=== PATIENT | female | born 1985 | race Hispanic/Latino ===

== ENCOUNTER 2019-12-24 06:41 | Day surgery (SDC) | payer OTHER ==
[2019-12-22 12:25] LABS: Hematocrit 36.6 % (30.3-42.9); Hemoglobin 12.7 gm/dl (10.1-14.3); Mean Corpuscular HGB Conc 35 % (30-34); Mean Corpuscular Volume 77 fl (79-97); Platelet Count 539 K/mm3 (140-440); Red Blood Count 4.75 M/mm3 (3.65-5.03); Red Cell Distribution Width 15.4 % (13.2-15.2)
--- NOTE | 2019-12-23 14:29 | Short Stay Summary ---
Short Stay Documentation Date of service: 12/24/19 Narrative H&P: 34y/o G0 presents with chronic pelvic pain and findings of a right dermoid cyst measuring 1.9cm. The patient has no desire to conceive in the future. She has requested removal of ovary instead of a cystectomy. The patient has been counseled on the risks and benefits of this procedure. Patient has been reassessed/reevaluated/re-examined. H&P has been reviewed. No interval changes. - History Principal diagnosis: Dermoid cyst Past Medical History: hypothyroidism, other (endometrial hyperplasia; obesity; depression) Past Surgical History: No surgical history Social history: single - Allergies and Medications Current Medications: Allergies No Known Allergies Allergy (Unverified 12/16/19 14:45) Home Medications Medication Instructions Recorded Confirmed Last Taken Type Bupropion HCl [Wellbutrin XL] 300 mg PO QAM 12/16/19 12/16/19 Unknown History Cariprazine HCl [Vraylar] 1.5 mg PO DAILY 12/16/19 12/16/19 Unknown History FLUoxetine HCL [PROzac] 40 mg PO QDAY 12/16/19 12/16/19 Unknown History Levothyroxine [Synthroid] 50 mcg PO QAM 12/16/19 12/16/19 Unknown History QUEtiapine [SEROquel] 25 mg PO HS 12/16/19 12/16/19 Unknown History clonazePAM [ Klonopin] 0.25 mg PO BID 12/16/19 12/16/19 Unknown History Active Medications Celecoxib (Celebrex) 200 mg PO PREOP NR Stop: 12/24/19 23:00 Gabapentin (Gabapentin) 600 mg PO PREOP NR Stop: 12/24/19 23:00 Lactated Ringer's (Lactated Ringers) 1,000 mls @ 100 mls/hr IV DIRECT LIZZETH Stop: 12/24/19 23:59 Magnesium Oxide (Mag-Ox) 400 mg PO PREOP LIZZETH Stop: 12/24/19 23:00 Midazolam HCl (Versed) 2 mg IV PREOP NR Stop: 12/24/19 23:00 - Physical exam General appearance: no acute distress Integumentary: no rash HEENT: Atraumatic Lungs: Clear to auscultation Breasts: deferred Heart: Regular rate Gastrointestinal: normal Female Genitourinary: deferred Rectal Exam: deferred - Brief post op/procedure progress note Date of procedure: 12/24/19 Pre-op diagnosis: Right dermoid cyst Post-op diagnosis: same Procedure: Laparoscopy Right oophorectomy Anesthesia: VINCENT Surgeon: SAY NOBLE Estimated blood loss: minimal Pathology: list (Right ovary) Specimen disposition: to lab Condition: stable - Hospital course Hospital course: The patient was on at the day of surgery and underwent a laparoscopy and a right oophorectomy. Please see operative note for details of surgery. Her postoperative course was uneventful. - Disposition Condition at discharge: Good Disposition: [id number] TO HOME OR SELFCARE - Discharge Diagnoses (1) Dermoid cyst Status: Acute Short Stay Discharge Plan Activity: other (Pelvic rest for 1 week) Diet: regular Additional Instructions: Schedule follow-up with Dr. Noble in 2 to 4 weeks Prescriptions: Ibuprofen [Motrin] 800 mg PO Q8HR PRN #30 tablet PRN Reason: Pain , Severe (7-10) HYDROcodone/APAP 5-325 [[place] 5/325] 1 each PO Q6HR PRN #15 tablet PRN Reason: Pain
[~2019-12-24 06:41] MED LIST: CELECOXIB 200 MG CAP PO NR; GABAPENTIN 300 MG CAP PO NR; LACTATED RINGERS 1,000 ML IV SCH; MAGNESIUM OXIDE 400 MG TAB PO SCH
--- NOTE | 2019-12-24 07:42 | Anesthesia Consultation ---
Anesthesia Consult and Med Hx Date of service: 12/24/19 - Airway Anesthetic Teeth Evaluation: Good ROM Head & Neck: Adequate Mental/Hyoid Distance: Adequate Mallampati Class: Class III Intubation Access Assessment: Possibly Difficult - Pre-Operative Health Status ASA Pre-Surgery Classification: ASA3 Proposed Anesthetic Plan: General - Central Nervous System Hx Psychiatric Problems: Yes (Anxiety, ADHD, bipolar) - Endocrine Hx Hypothyroidism: Yes - Other Systems Hx Alcohol Use: Yes (Occas) Hx Cancer: No Hx Obesity: Yes (Morbid obesity, BMI 47.4)
--- NOTE | 2019-12-24 07:42 | Anesthesia Day of Surgery ---
Anesthesia Day of Surgery - Day of Surgery Patient Examined: Yes Patient H&P Reviewed: Yes Patient is NPO: Yes
[2019-12-24] MEDS ORDERED: SCOPOLAMINE TRANSDERMAL PATCH 72 HR TD NR (08:00)
[2019-12-24] MEDS ORDERED: FAMOTIDINE 20 MG/2 ML INJ IV NR (08:00)
[2019-12-24] MEDS ORDERED: HYDROmorphone 1 MG/1 ML INJ IV PRN (08:44)
[2019-12-24] MEDS: MIDAZOLAM 2 MG/2 ML INJ IV NR ×2 (08:45→09:10)
[2019-12-24] MEDS ORDERED: BUPIVACAINE/PF (0.5%) 5 MG/1 ML 30 ML VIAL INFILTRATI ONE ×2 (09:55→10:55)
[2019-12-24] MEDS ORDERED: propofoL 200 MG/20 ML VIAL IV ONE (10:06)
[2019-12-24] MEDS ORDERED: ROCURONIUM 50 MG/5 ML INJ IV ONE (10:06)
[2019-12-24] MEDS ORDERED: fentaNYL 100 MCG/2 ML INJ ONE (10:06)
[2019-12-24] MEDS ORDERED: KETOROLAC 30 MG/1 ML INJ ONE (10:34)
[2019-12-24] MEDS ORDERED: ONDANSETRON 4 MG/2 ML INJ ONE (10:34)
[2019-12-24] MEDS ORDERED: dexAMETHasone 20 MG/5 ML VIAL ONE (10:34)
[2019-12-24] MEDS ORDERED: SODIUM CHLORIDE 0.9% IRR 1,500 ML BOTTLE IR ONE (10:55)
[2019-12-24] MEDS ORDERED: ePHEDrine SULFATE 50 MG/1 ML INJ ONE (10:59)
[2019-12-24] MEDS ORDERED: GLYCOPYRROLATE 0.4 MG/2 ML INJ ONE (11:39)
[2019-12-24] MEDS ORDERED: NEOSTIGMINE 10MG/10 ML INJ MDV ONE (11:39)
--- NOTE | 2019-12-24 11:58 | Operative Report ---
Operative Report Operative Report: Date of surgery: December 24, 2019 Preoperative diagnosis: Right dermoid cyst Postoperative diagnosis: Same as above Procedure: Laparoscopy; right oophorectomy Surgeon: Merari Damico M.D. Anesthesia: General endotracheal anesthesia Estimated blood loss: Minimal Pathology: Right ovary Findings: Enlarged right ovary Indication: 34-year-old G0 with a history of a right dermoid tumor. The patient has requested removal of her right ovary. Procedure: The patient was taken to the operating room and given general endotracheal anesthesia without complication. The patient is prepped and draped in a normal sterile fashion. A bivalve speculum was placed in the patient's vagina and a single-tooth tenaculum was placed on the anterior lip of the cervix .A uterine acorn manipulator was placed, and the bivalve spe The fallopian tube was then followed out to the fimbriated end. The LigaSure device was used in order to coagulate and transect the mesosalpinx. The fallopian tube was excised from the adnexa. The fallopian tube was reculum was then removed. Attention was then turned to the patient's abdomen where a 5 mm infraumbilical skin incision was then made. A Veress needle was placed and peritoneal entry was verified water-filled syringe. Insufflation of the peritoneal cavity was performed with CO2 gas. A 5 mm trocar was placed and the laparoscope was then inserted. The patient was then placed in Trendelenburg. A 7 mm suprapubic skin incision was then made. Under direct visualization a 10 mm trocar was then placed. An additional 5 mm left lateral trocar was also placed. General survey of the patient's abdomen revealed normal uterus and tubes. The right ovary was enlarged consistent with a dermoid tumor. The LigaSure device was used to coagulate and transect the infundibulopelvic ligament of the right ovary. Because of the size of the ovary the ovary had to be bivalved to facilitate placement in the Endo Catch bag. The Endo Catch bag was placed through the 10 mm trocar. 1 portion of the ovary was removed and a second Endo Catch bag was placed to remove the remaining ovary. The fascial defect of the 10 mm trocar was closed with a Jeramie Gayle device using 0 Vicryl suture. The trocars were then removed. The pneumoperitoneum was then released. The 5 mm trocar laparoscope was then removed. The skin incisions were then closed with 4-0 Monocryl. The incisions were injected with quarter percent Marcaine. Dressings were applied to the incision. The vaginal instruments were then removed atraumatically. Then successfully extubated and taken to the recovery room. All sponge laps and needle counts were correct x2.
[2019-12-24] MEDS ORDERED: HYDROcodone/ACETAMINOPHEN 5-325 MG TAB ONE (12:30)
[2019-12-24] MEDS ORDERED: HYDROcodone/ACETAMINOPHEN 5-325 MG TAB PO ONE (12:33)
--- NOTE | 2019-12-24 15:30 | Post Anesthesia Evaluation ---
- Post Anesthesia Evaluation Patient Participated: Yes Airway Patent: Yes Stable Respiratory Function: Yes Nausea/Vomiting: No Temp > 96.8F: Yes Pain Manageable: Yes Adequeate Hydration: Yes Anesthesia Complications: No
[2019-12-24 19:42] VITALS: BP 129/75
== END 2019-12-24 06:42 | disposition home or self-care (01) ==
LOC: OR 06:41
PROVIDERS: ATTEND Obstetrics & Gynecology
DX: D27.0 Benign neoplasm of right ovary (principal); Z20.828 Contact with and (suspected) exposure to other viral communicable diseases; G43.909 Migraine, unspecified, not intractable, without status migrainosus; E66.9 Obesity, unspecified; E03.9 Hypothyroidism, unspecified; F41.9 Anxiety disorder, unspecified; Z68.42 Body mass index [BMI] 45.0-49.9, adult; Z79.899 Other long term (current) drug therapy; Z98.890 Other specified postprocedural states; Z86.2 Personal history of diseases of the blood and blood-forming organs and certain disorders involving the immune mechanism
CPT/HCPCS: 36415; 58670; 84703; 85027; 88305; J1100; J1885; J2250; J2405; J2704; J2710; J3010; J7120; U0003

== ENCOUNTER 2019-12-25 19:22 | Emergency (ER) | payer OTHER | END 2019-12-25 21:00 | disposition left against medical advice (07) | LOC: ED 19:22 | DX: R10.9 Unspecified abdominal pain (principal); Z53.21 Procedure and treatment not carried out due to patient leaving prior to being seen by health care provider ==